=== PATIENT | male | born 1970 | race Caucasian/White ===

== ENCOUNTER → 2016-11-18 | Outpatient (CLI) | payer OTHER ==
--- NOTE | 2016-11-18 17:31 | XR ---
EXAMINATION TYPE: XR lumbar spine 2 or 3V DATE OF EXAM: 11/18/2016 5:25 PM COMPARISON: NONE HISTORY: Low back pain TECHNIQUE: 3 views FINDINGS: The lumbar vertebra have normal alignment. There is narrowing at L4-5 disc space with spurr ing of the endplates. Posterior elements are intact. There is no compression fracture. Sacroiliac elvis nts are normal. IMPRESSION: Spondylosis at L4-5. No fracture seen.
== END | disposition home or self-care (01) ==
LOC: RADXRMAIN 16:54
PROVIDERS: ATTEND Emergency Medicine
DX: M47.816 Spondylosis without myelopathy or radiculopathy, lumbar region (principal)
CPT/HCPCS: 72100

== ENCOUNTER → 2016-11-21 | Outpatient (CLI) | payer BC, OTHER ==
--- NOTE | 2016-11-21 14:30 | CT ---
EXAMINATION TYPE: CT lumbar spine wo con DATE OF EXAM: 11/21/2016 2:21 PM COMPARISON: NONE HISTORY: Low back pain8 CT DLP: 822 mGycm CONTRAST: Unenhanced CT of the lumbar spine was performed with bone and soft tissue window settings submitted. Unenhanced CT of the lumbar spine was performed. Bone and soft tissue window settings are submitted as well as coronal and sagittal reconstructions. L1-L2: Normal disc space height. No disc herniation protrusion or central stenosis. No facet joint arthropathy. No evidence for foraminal encroachment. L2-L3: Normal disc space height. No disc herniation protrusion or central stenosis. No facet joint arthropathy. No evidence for foraminal encroachment. L3-L4: There is mild degenerative disc space narrowing. Moderate circumferential disc bulge with effa cement of the ventral thecal sac. Borderline stenosis is not excluded centrally. There appears to be bilateral lateral recess stenosis. Foramina are patent. L4-L5: Moderate to severe degenerative disc space narrowing. Posterocentral disc herniation with part ial encapsulating spur resulting in disc endplate complex. There is bilateral lateral recess stenosis as well as a mild central stenosis. Bilateral foraminal encroachment identified. Facet joint arthrop athy seen. L5-S1: There is borderline to mild degenerative disc space narrowing. Mild left paracentral disc bulg e without herniation. No evidence for central stenosis or foraminal encroachment. No paraspinal masses are identified. Lumbar segments are free if fracture. IMPRESSION: 1. Degenerative disc disease as discussed. 2. Disc endplate complex at L4-5 resulting in bilateral lateral recess stenosis as well as mild centr al stenosis at this level. 3. Borderline central stenosis at L3-4.
== END | disposition home or self-care (01) ==
LOC: RADCTMAIN 13:52
PROVIDERS: ATTEND Emergency Medicine
DX: M48.06 Spinal stenosis, lumbar region (principal); M51.36 Other intervertebral disc degeneration, lumbar region
CPT/HCPCS: 72131

== ENCOUNTER → 2018-12-18 | Day surgery (SDC) | payer BC, OTHER ==
[2018-12-15 16:49] VITALS: BMI 38.1
[~2018-12-18] MED LIST: LACTATED RINGERS 1,000 ML IV SCH; LIDOCAINE 1% 20 ML VIAL (10MG/ML) FOR IV START INTRADERMA ONE; MIDAZOLAM (PF) 2 MG/2 ML VIAL IVP ONE; MIDAZOLAM 2 MG/2 ML VIAL ONE; PROPOFOL 10 MG/ML 20 ML VIAL IV ONE; fentaNYL (PF) 50 MCG/ML 2 ML AMP ONE
[2018-12-18 08:27] VITALS: TEMP 97.8
[2018-12-18 09:49] VITALS: RESP 17
--- NOTE | 2018-12-18 09:58 | P.PCN ---
Date of Procedure: 12/18/18 Procedure(s) Performed: BRIEF HISTORY: Patient is a 48-year-old pleasant male, scheduled for an elective colonoscopy as a part of it should of intermittent rectal bleeding for the last 2 months duration. PROCEDURE PERFORMED: Colonoscopy. PREOPERATIVE DIAGNOSIS: Committed rectal bleeding. IV sedation per Anesthesia. PROCEDURE: After informed consent was obtained, the patient, was brought into the endoscopy unit. IV sedation was administered by Anesthesia under continuous monitoring. Digital rectal examination was normal. Initially the Olympus CF-160 flexible video colonoscope was then inserted in the rectum, gradually advanced into the cecum without any difficulty. Careful examination was performed as the scope was gradually being withdrawn. Ileocecal valve and the appendiceal orifice were visualized and appeared normal. Prep was excellent. Mucosa of the cecum, ascending colon, transverse colon, descending colon, sigmoid colon, and rectum appeared normal. Retroflexion was performed in the rectum and small internal hemorrhoids were seen. The patient tolerated the procedure well. IMPRESSION: Normal-appearing colon from rectum to cecum with no evidence of colorectal neoplasia. Small internal hemorrhoids RECOMMENDATIONS: Findings of this examination were discussed with the patient as well as his family. He was advised to be on a high-fiber diet and fiber supplements a regular basis and avoid straining and constipation. He can have a repeat screening colonoscopy in 10 years.
[2018-12-18 10:12] VITALS: BP 132/82; PULSE 70
== END ==
LOC: ORWHC2ENDO 08:10
PROVIDERS: ATTEND Internal Medicine Gastroenterology
DX: K64.8 Other hemorrhoids (principal); K62.5 Hemorrhage of anus and rectum; E66.9 Obesity, unspecified; Z68.38 Body mass index [BMI] 38.0-38.9, adult; Z88.8 Allergy status to other drugs, medicaments and biological substances
CPT/HCPCS: 45378; J2250 ×2; J3010; J2704

== ENCOUNTER 2019-03-08 21:26 | Emergency (ER) | payer BC, OTHER ==
[2019-03-08 21:47] VITALS: BP 169/109; PULSE 72; RESP 16; TEMP 98.2
--- NOTE | 2019-03-08 22:02 | ED ---
Allergic Reaction HPI - General Chief complaint: Allergic Reaction Stated complaint: Poss Allergic reaction Time Seen by Provider: 03/08/19 22:00 Source: patient Mode of arrival: ambulatory - History of Present Illness Initial Comments: Demarcus is a 48-year-old gentleman who presents to the emergency department today for evaluation of rash. Patient reports that Friday and Friday he was working in his yard he knows he has poison sandee in his yard. Patient reports that Friday night he noticed rash on his bilateral forearms. Since that time he has noticed the rash has worsened he also has noticed redness and itching to the right side of his face and has noticed swelling of his penis. Patient reports that he recalls while working on the yard that he used his shirt to wipe his face and believes at that time he likely contaminated. He also states that while he was outside he did urinate without washing his hands and believes of how is contaminated his penis. Patient reports he has had severe poison IV rash in the past requiring treatment with steroids. - Related Data Home Medications Medication Instructions Recorded Confirmed Naproxen Sodium [Aleve] 220 mg PO Q8H PRN 03/08/19 03/08/19 diphenhydrAMINE [Benadryl] 25 mg PO Q8H PRN 03/08/19 03/08/19 Previous Rx's Medication Instructions Recorded hydrOXYzine HCL [Atarax] 25 mg PO TID PRN #30 tab 03/08/19 predniSONE See Taper PO DAILY #42 tab 03/08/19 Allergies Allergy/AdvReac Type Severity Reaction Status Date / Time fexofenadine HCl Allergy Rapid Verified 03/08/19 22:00 [From Tabatha-D] Heart Rate pseudoephedrine HCl Allergy Rapid Verified 03/08/19 22:00 [From Tabatha-D] Heart Rate Review of Systems ROS Statement: Those systems with pertinent positive or pertinent negative responses have been documented in the HPI. ROS Other: All systems not noted in ROS Statement are negative. Past Medical History Past Medical History: No Reported History Additional Past Medical History / Comment(s): HAD A FEW EPISODES OF BLOOD IN STOOL A MONTH OR SO AGO PER PT. CHRONIC BACK PAIN WITH BONE SPUR History of Any Multi-Drug Resistant Organisms: None Reported Past Surgical History: No Surgical Hx Reported Past Anesthesia/Blood Transfusion Reactions: No Reported Reaction Additional Past Anesthesia/Blood Transfusion Reaction / Comment(s): NO PRIOR SURGICAL HX Past Psychological History: No Psychological Hx Reported Smoking Status: Never smoker - Past Family History Mother Family Medical History: No Reported History General Exam - General Exam Comments Initial Comments: Physical Exam GENERAL: Patient is well-developed and well-nourished. Patient is nontoxic and well-hydrated and is in no distress. HENT: Normocephalic, Atraumatic. Rash on right-sided face, angioedema of the eyelids oropharynx clear with no signs of angioedema EYES: PERRL, EOMI PULMONARY: Unlabored respirations. No audible rales rhonchi or wheezing was noted. CARDIOVASCULAR: There is a regular rate and rhythm without any murmurs gallops or rubs. ABDOMEN: Soft and nontender with normal bowel sounds. SKIN: Rash on bilateral forearms : Angioedema of the penile shaft Glans is normal, patient urinating normally NEUROLOGIC: Patient is alert and oriented x3. Moving all extremities spontaneously MUSCULOSKELETAL: Normal extremities with adequate strength and full range of motion. No lower extremity swelling or edema. No calf tenderness. PSYCHIATRIC: Normal psychiatric evaluation Course Vital Signs 03/08/19 21:43 Temperature 98.2 F Pulse Rate 72 Respiratory 16 Rate Blood Pressure 169/109 O2 Sat by Pulse 97 Oximetry Medical Decision Making - Medical Decision Making Patient was seen and evaluated, history is obtained from the patient History and physical exam are consistent with diffuse [place] dermatitis neck sign patient does have some angioedema of his penis likely secondary to inadvertently touching him when he had the oils from the plant on his hand, patient has experienced this in the past but never had the swelling to his penis Patient will be treated with IM Solu-Medrol here and discharged home with a 21 day taper of prednisone as well as Atarax to be taken for the itching. I advised the patient to take Benadryl night at her extremity day but not to take both. All questions pertaining care were answered return parameters were discussed the patient was discharged home in stable condition. Disposition Clinical Impression: Rhus dermatitis Disposition: HOME SELF-CARE Condition: Stable Instructions (If sedation given, give patient instructions): Angioedema (ED), Cold Compress or Soak (ED) Prescriptions: hydrOXYzine HCL [Atarax] 25 mg PO TID PRN #30 tab PRN Reason: Itching predniSONE See Taper PO DAILY #42 tab Is patient prescribed a controlled substance at d/c from ED?: No Referrals: Lonnie Wharton DO [Primary Care Provider] - 1-2 days
[2019-03-08] MEDS ORDERED: methylPREDNISolone SOD SUCCI 125 MG/2 ML VIAL IM ONE (22:28)
== END 2019-03-08 23:02 | disposition home or self-care (01) ==
LOC: EC 21:26
DX: L23.7 Allergic contact dermatitis due to plants, except food (principal); Z88.8 Allergy status to other drugs, medicaments and biological substances
CPT/HCPCS: 99283; 96372; J2930

== ENCOUNTER → 2022-02-04 | Outpatient (CLI) | payer OTHER ==
--- NOTE | 2022-02-04 18:52 | CT ---
EXAMINATION TYPE: CT lumbar spine wo con CT DLP: 1261 mGycm, Automated exposure control for dose reduction was used. DATE OF EXAM: 02/04/2022 6:42 PM COMPARISON: CT lumbar spine 11/21/2016. CLINICAL INDICATION:Male, 51 years old with history of S39.012D, back pain twisting injury TECHNIQUE: Multiple axial images were obtained from the midportion of T11 through the sacroiliac elvis nts. Soft tissue and bone windows in coronal and sagittal planes were obtained and reviewed. FINDINGS: Alignment: There are 5 lumbar type vertebral bodies within normal alignment. Bone: No evidence of fracture is identified. Multilevel disc degeneration changes are seen throughou t the spine. Discs: T12-L1: No spinal canal or neural foraminal stenosis is identified. L1-L2: No spinal canal or neural foraminal stenosis is identified. L2-L3: No spinal canal or neural foraminal stenosis is identified. L3-L4: Mild spinal canal stenosis secondary to disc bulge and facet joint arthropathy. The neural for amen are patent. L4-L5: Facet joint arthropathy with at least moderate neural foraminal stenosis bilaterally. Osteoph yte with at least moderate to severe spinal canal stenosis is also present. L5-S1: No spinal canal or neural foraminal stenosis is identified. IMPRESSION: 1. No evidence of fracture of the lumbar spine. 2. Similar L4-L5 moderate spinal canal stenosis with at least moderate bilateral neural foraminal allyn nosis. 3. Similar central stenosis at L3-L4.
== END | disposition home or self-care (01) ==
LOC: RADCTMAIN 17:35
PROVIDERS: ATTEND Emergency Medicine
DX: M48.061 Spinal stenosis, lumbar region without neurogenic claudication (principal); M99.73 Connective tissue and disc stenosis of intervertebral foramina of lumbar region
CPT/HCPCS: 72131

== ENCOUNTER → 2023-03-28 | Outpatient (CLI) | payer BC, OTHER ==
--- NOTE | 2023-03-30 12:41 | CT ---
EXAMINATION TYPE: CT heart w calcium score DATE OF EXAM: 03/28/2023 COMPARISON: None HISTORY: 52-year-old male R00.0, Hx tachycardia. Family cardiac hx, Screening for cardiovascular diso rder. 213.9 CT DLP: 274.31 mGycm Automated exposure control for dose reduction was used. CT CALCIUM SCORING Coronary calcium is a marker for plaque (fatty deposits) in a blood vessel or atherosclerosis (harden ing of the arteries). The presence and amount of calcium detected in a coronary artery by the CT sca n, indicates the presence and amount of atherosclerotic plaque. These calcium deposits appear years before the development of heart disease symptoms such as chest pain and shortness of breath. A calcium score is computed for each of the coronary arteries based upon the volume and density of th e calcium deposits. This can be referred to as your calcified plaque burden. It does not correspond directly to the percentage of narrowing in the artery but does correlate with the severity of the un derlying coronary atherosclerosis. PROCEDURE TECHNIQUE - Prospective Gating was used. Slice thickness: 3mm. Density threshold (HU): 130, Pixel threshold: 3, Algorithm: discrete. 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 * Mildly enlarged caliber to the main right and left pulmonary arteries measuring up to 2.8 cm may r eflect underlying pulmonary arterial hypertension. * Small hiatal hernia. * Visualized lungs show no specific abnormality. IMPRESSION: Calcium Score: 0 Implication: No identifiable plaque. Risk of Coronary Artery Disease: Very low, generally less than 5%. Incidental findings as mentioned above.
== END | disposition home or self-care (01) ==
LOC: RADCTMAIN 13:04
PROVIDERS: ATTEND Family Medicine
DX: I71.21 Aneurysm of the ascending aorta, without rupture (principal); K44.9 Diaphragmatic hernia without obstruction or gangrene; R00.0 Tachycardia, unspecified
CPT/HCPCS: 75571

== ENCOUNTER → 2023-04-29 | Outpatient (CLI) | payer BC, OTHER ==
--- NOTE | 2023-04-30 18:05 | CA ---
Transthoracic Echo Report Name: Demarcus Cramer Age: 52 Gender: M : 1970 Exam Date: 04/29/2023 15:07 Exam Location: [facility] Ht (in): 75 Wt (lb): 330 Ordering Physician: Lonnie Wharton DO Attending/Referring Phys: Lonnie Wharton DO Neck Band Setter Rachelle Miller RDCS Procedure CPT: Indications: R00.2 palpitations Cardiac Hx: Family Hx of AO anurysm Technical Quality: Fair Contrast 1: Total Dose (mL): Contrast 2: Total Dose (mL): MEASUREMENTS (Male / Female) Normal Values 2D ECHO LV Diastolic Diameter PLAX 6.6 cm 4.2 - 5.9 / 3.9 - 5.3 cm LV Systolic Diameter PLAX 4.1 cm IVS Diastolic Thickness 1.1 cm 0.6 - 1.0 / 0.6 - 0.9 cm LVPW Diastolic Thickness 1.1 cm 0.6 - 1.0 / 0.6 - 0.9 cm LV Relative Wall Thickness 0.3 RV Internal Dim ED PLAX 3.4 cm LA Systolic Diameter LX 3.6 cm 3.0 - 4.0 / 2.7 - 3.8 cm LV Diastolic Volume MOD BP 110.2 cm??? 67 - 155 / 56 - 104 cm??? LV Systolic Volume MOD BP 53.7 cm??? - / 19 - 49 cm??? LV Ejection Fraction MOD BP 51.3 % >= 55 % LV Cardiac Index MOD BP 1436.0 cm???/min???m??? LV Diastolic Volume MOD 4C 80.0 cm??? LV Systolic Volume MOD 4C 39.1 cm??? LV Ejection Fraction MOD 4C 51.1 % LV Cardiac Index MOD 4C 1039.5 cm???/min???m??? LV Diastolic Length 4C 7.1 cm LV Systolic Length 4C 5.7 cm LV Diastolic Volume MOD 2C 135.9 cm??? LV Systolic Volume MOD 2C 56.2 cm??? LV Ejection Fraction MOD 2C 58.6 % LV Cardiac Index MOD 2C 2023.4 cm???/min???m??? LV Diastolic Length 2C 8.5 cm LV Systolic Length 2C 7.8 cm LA Volume 67.5 cm??? 18 - 58 / 22 - 52 cm??? M-MODE Aortic Root Diameter MM 4.4 cm MV E Point Septal Separation 0.6 cm AV Cusp Separation MM 2.6 cm DOPPLER AV Peak Velocity 157.3 cm/s AV Peak Gradient 9.9 mmHg AV Mean Velocity 105.0 cm/s AV Mean Gradient 5.1 mmHg AV Velocity Time Integral 26.7 cm AI Peak Velocity 363.5 cm/s AI Peak Gradient 52.8 mmHg AI Pressure Half Time 917.9 ms MV Area PHT 4.7 cm??? Mitral E Point Velocity 79.6 cm/s Mitral A Point Velocity 107.9 cm/s Mitral E to A Ratio 0.7 MV Deceleration Time 162.6 ms FINDINGS Left Ventricle Left ventricular ejection fraction is estimated at 50-55 %. Mildly increased septal wall thickness. Moderately increased left ventricular diastolic diameter. Right Ventricle Mild right ventricular dilatation. Unable to estimate the right ventricular systolic pressure. Right Atrium Normal right atrial size. Left Atrium Mildly increased left atrial volume. Mitral Valve Structurally normal mitral valve. No mitral stenosis, regurgitation or prolapse. Aortic Valve Trileaflet aortic valve. [id number] aortic regurgitation. Tricuspid Valve Structurally normal tricuspid valve. No tricuspid regurgitation. Pulmonic Valve Structurally normal pulmonic valve. Trace to mild pulmonic regurgitation. Pericardium No pericardial effusion. Aorta Moderately dilated aortic annulus 44 mm. Mildly dialated ascending AO 40 mm CONCLUSIONS Normal LV systolic function. LVEF 50-55% Moderately increased LV diastolic diameter, 65 mm Moderate aortic regurgitation Moderately limited aortic root at 44 mm Mildly dilated ascending aorta at 40 mm No obvious regional wall motion abnormality Mild concentric LVH No other major valvular abnormality No prior echo to compare with Previewed by: Dr Luis A Son (Electronically Signed) Final Date: 30 April 2023 17:52
== END | disposition home or self-care (01) ==
LOC: RADECHMAIN 14:57
PROVIDERS: ATTEND Family Medicine
DX: I35.1 Nonrheumatic aortic (valve) insufficiency (principal); R00.2 Palpitations
CPT/HCPCS: 93306